=== PATIENT | female | born 1955 | race Caucasian/White ===

== ENCOUNTER 2016-07-27 08:46 | Day surgery (SDC) | payer BC, OTHER ==
[2016-07-25 12:12] VITALS: BMI 21.1
--- NOTE | 2016-07-27 09:47 | HP ---
Satellite [facility] - Chief Complaint Chief Complaint: right knee pain - Past Medical History Allergies/Adverse Reactions: Allergies Allergy/AdvReac Type Severity Reaction Status Date / Time No Known Drug Allergies Allergy Verified 07/27/16 09:02 - Current Medications Current Medications: Home Medications Medication Instructions Recorded Calcium Carbonate/Vitamin D3 1 each PO DAILY 10/28/14 [Calcium 600-Vit D3 200 Tablet] Hydrocodone/Acetaminophen [[place] 1 - 2 each PO Q6H #40 tablet MDD 8 07/27/16 5-325 Tablet] Montelukast Na [Singulair -] 10 mg PO HS 07/27/16 Satellite Physical Exam - Physical Examination Vital Signs: Vital Signs Period Temp Pulse Resp BP Sys/Shultz Pulse Ox Last 24 Hr 98 F 65 16 134/78 98 General Appearance: Well Nourished, Well Developed, Alert & Oriented x3 ENT: Clear Lung: Normal air movement Heart: Regular rate & rhythm Extremities: Other (right knee- + swelling, + ttp, decr rom, + mcmurrays, + apleys, nvi MRI + mmt) Neurological: Intact, Alert, Oriented Satellite Impression/Plan - Impression/Plan Impression: right knee internal derangement Operative Procedure: right knee arthroscopy Date to be Performed: 07/27/16
[2016-07-27] MEDS ORDERED: MIDAZOLAM HCL 2 MG/2 ML SINGLE DOSE VIAL ONE (10:14)
[2016-07-27] MEDS ORDERED: BUPIVACAINE HCL/PF 0.5% (5MG/ML) 10 ML VIAL ONE (10:18)
[2016-07-27] MEDS ORDERED: oxyCODONE HCL 5 MG TABLET PO PRN (10:57)
[2016-07-27] MEDS ORDERED: ONDANSETRON 4 MG/2 ML VIAL IVPUSH PRN (10:57)
[2016-07-27] MEDS ORDERED: LACTATED RINGERS SOLUTION 1,000 ML IV SCH (11:00)
[2016-07-27] MEDS ORDERED: ceFAZolin SODIUM 1 GM VIAL IVPB ONE (11:17)
--- NOTE | 2016-07-27 11:40 | OP ---
Operative Note - Note: [facility]ative [facility] Pre-Operative Diagnosis: right knee internal derangement Operation: right knee arthroscopy with PMM, debridement chondroplasty trochlea Post-Operative Diagnosis: Same as Pre-op Surgeon: Og Gotti Anesthesiologist/EVALUATION SPECIALIST: Hilda Murillo Anesthesia: General, Local Specimens Removed: shavings Estimated Blood Loss (mls): 5 Operative Report Dictated: Yes
[2016-07-27 12:20] VITALS: TEMP 97.5
[2016-07-27] MEDS ORDERED: oxyCODONE HCL 5 MG TABLET ONE (13:25)
[2016-07-27 17:21] VITALS: BP 130/72; PULSE 78
--- NOTE | 2016-07-28 12:06 | OP ---
DATE OF OPERATION: 07/27/2016 PREOPERATIVE DIAGNOSIS: Right knee medial meniscus tear. POSTOPERATIVE DIAGNOSIS: Right knee medial meniscus tear, plus patellofemoral osteoarthritis. PROCEDURE: Right knee arthroscopy, partial medial meniscectomy, and debridement chondroplasty. SURGEON: Laurie George MD TRANSPORTATION CONSULTANT: None. BUSINESS MANAGEMENT ASSOCIATE: Hilda Murillo CRNA ANESTHESIA: LMA. . DRAINS: None. COMPLICATIONS: None. FLUID REPLACEMENT: 500 mL. SPECIMENS: Arthroscopic shavings. BLOOD LOSS: None. BLOOD GIVEN: None. INDICATIONS: This patient is a 61-year-old female with a preoperative diagnosis of right knee pain and medial meniscus tear. After understanding the potential risks, complications, alternatives, and benefits of surgical versus nonsurgical treatment, the patient elected to undergo this procedure. DESCRIPTION OF PROCEDURE: The patient was brought to the operating room, peripheral IV placed, and IV sedation was given. One gram of IV Ancef was given. LMA anesthesia was induced. Ample padding was placed on the right leg including the Styrofoam ring, and right lower extremity was placed into the C-clamp leg-peña, elevated, exsanguinated with an Esmarch bandage. The tourniquet was inflated to 250 mmHg. A superomedial portal was established, a lateral portal was established, and under direct visualization, a medial portal was established. A diagnostic arthroscopy was performed. A probe was introduced into the medial compartment. The patient was seen to have a complex tear of the posterior horn and body of the medial meniscus. A combination of up-biting forceps and a curved shaver was utilized to do a partial medial meniscectomy. There was a large undersurface flap. I would estimate that I removed 30% of the body and posterior horn of the medial meniscus. Photographs were taken before and after. Next, I looked at the intercondylar notch. The ACL looked great. Probed, it had the appropriate tension. Next, I looked at the lateral compartment. It looked good. There was no arthritis, and the lateral meniscus looked good. Next, I looked at the patellofemoral joint. There was some excessive Hoffas fat pad. This was debrided. This revealed a large area of grade 4 osteoarthritis. It was approximately the size of a quarter with a dime on each side of it. The main portion at the patellofemoral joint looked quite good. There was a little bit of grooving at the trochlear notch. Photographs were taken, but the area of grade 4 exposed osteoarthritis was on the central portion of the medial femoral condyle, but it is less so in the weightbearing portion of the bone. There was a large unstable flap that was peeling off the bone. It was probed and then debrided with the shaver, and I mildly decorticated this area in the hopes of stimulating some sort of healing response. I do feel that at 61, she would be a good candidate for the patellofemoral MAKOplasty if this became an issue. The area was copiously irrigated and washed out. All instrumentation removed. Excess saline removed. The arthroscopy portal was closed with 3-0 nylon suture. The area was then washed and dried and covered with Xeroform, 4x4, Webril, and an Temo bandage. The tourniquet was taken down after a total tourniquet of about 20 minutes. There were no complications during the case. The patient tolerated the procedure well and was brought to the ambulatory recovery room in stable condition. LAURIE GEORGE M.D. [id number]
--- NOTE | 2016-07-29 09:44 | PATH ---
Surgical Pathology Report Patient Name: [facility]. Rec. #: [id number] /Age/Gender: 1955 (Age: 61) / F Account: [id number] Location: [facility] Taken: 07/27/2016 Received: 07/27/2016 Reported: 07/29/2016 Physicians: Og Gotti M.D. Specimen(s) Received SHAVINGS RIGHT KNEE Clinical History Right knee tear Final Diagnosis SOFT TISSUE, RIGHT KNEE, ARTHROSCOPIC SHAVINGS: SYNOVIUM AND FIBROCARTILAGE WITH MYXOHYALINE DEGENERATION. Electronically Signed Kael Purcell M.D. Gross Description Received in formalin, labeled "right knee shavings" is a 5.0 x 3.5 x 0.4 cm aggregate of whitney-yellow soft tissue fragments. A telephone sales representative portion is submitted in one cassette. /07/27/201607/27/2016
== END 2016-07-27 14:30 | disposition home or self-care (01) ==
LOC: JASU-SURG 08:46
PROVIDERS: ATTEND Orthopaedic Surgery
PROC: 0SBC4ZZ Excision of Right Knee Joint, Percutaneous Endoscopic Approach (ICD-10-PCS; 2016-07-27)
PROC: 0SBC4ZZ Excision of Right Knee Joint, Percutaneous Endoscopic Approach (ICD-10-PCS; principal; 2016-07-27 10:30)
DX: S83.231A Complex tear of medial meniscus, current injury, right knee, initial encounter (principal); X58.XXXA Exposure to other specified factors, initial encounter; Y93.9 Activity, unspecified; Y92.9 Unspecified place or not applicable; M17.11 Unilateral primary osteoarthritis, right knee
CPT/HCPCS: 29881; G0289; 88304-TC; 94760

== ENCOUNTER 2018-02-17 20:32 | Inpatient (IN) | payer BC, OTHER ==
[2018-02-17 20:54] VITALS: BMI 20.9
[2018-02-17] MEDS ORDERED: ACETAMINOPHEN 1000 MG/100 ML VIAL (NON FORMULARY) IVPB ONE (20:59)
--- NOTE | 2018-02-17 21:04 | PDOC ---
History of Present Illness - General Chief Complaint: Bone Injury Stated Complaint: BROKEN RT HIP Time Seen by Provider: 02/17/18 20:57 History Source: Patient, EMS Exam Limitations: No Limitations - History of Present Illness Initial Comments: 02/17/18 20:57 This is a 63 YOF with h/o COPD (on Spiriva) and ITP years ago (completely resolved on followup) who p/w right medial hip pain for the past ~2 days since falling while on vacation in [place]. She describes being on a platform at about 10:30 am [place] time yesterday when her right foot became caught on an irregular part of the platform, and she tipped over to her right, falling directly onto the right lateral hip. She did not hit her head or lose consciousness. She had immediate pain to the right medial hip at the inguinal crease (patient points). She was taken to a hospital in [place] where they did X-rays and detected a trochanteric fracture. The patient opted out of having surgery there and a medical jet plane flew here back here to a [place] airport, where she was picked up by EMS and brought here for Dr. Gotti's services because he is her orthopedist. The flight crew has been controlling her pain with Dilaudid and Fentanyl, last dose of any medication was Dilaudid at about 7:30 pm tonight. The patient denies f/c/n/v/d/c, chest pain, SOB, cough , palpitations, abdominal pain, significant cuts or bruises (tiny skin avulsion to left palm), numbness, tingling, focal weakness, or any other symptoms. Past History - Past Medical History Allergies/Adverse Reactions: Allergies Allergy/AdvReac Type Severity Reaction Status Date / Time No Known Drug Allergies Allergy Verified 07/27/16 09:02 Home Medications: Ambulatory Orders Calcium Carbonate/Vitamin D3 [Calcium 600-Vit D3 200 Tablet] 1 each PO DAILY Hydrocodone/Acetaminophen [[place] 5-325 Tablet] 1 - 2 each PO Q6H #40 tablet MDD 8 07/27/16 Montelukast Na [Singulair -] 10 mg PO HS 07/27/16 Anemia: No Asthma: No Cancer: No Cardiac Disorders: No CVA: No COPD: No CHF: No DVT: No Dementia: No Diabetes: No GI Disorders: No Disorders: No HTN: No Hypercholesterolemia: No Liver Disease: No Seizures: No Thyroid Disease: No - Surgical History Orthopedic Surgery: Yes (LEFT PATELLAR; LEFT KNEE REPAIR; RIGHT WRIST;) - Immunization History Immunization Up to Date: Yes - Suicide/Smoking/Psychosocial Hx Smoking History: Never smoked Have you smoked in the past 12 months: Yes If you are a former smoker, when did you quit?: 2 MONTHS Information on smoking cessation initiated: No 'Breaking Loose' booklet given: 07/25/16 Hx Alcohol Use: No Drug/Substance Use Hx: No Substance Use Type: Alcohol Hx Substance Use Treatment: No Review of Systems - Review of Systems Able to Perform ROS?: Yes Constitutional: No: Chills, Fever, Unexplained wgt Loss HEENTM: No: Nose Congestion, Throat Pain Respiratory: No: Cough, Shortness of Breath Cardiac (ROS): No: Chest Pain, Palpitations ABD/GI: No: Constipated, Diarrhea, Nausea, Vomiting : No: Burning, Dysuria Musculoskeletal: Yes: Other (right hip and groin pain). No: Back Pain, Neck Pain Integumentary: No: Bruising, Rash Neurological: No: Headache, Numbness, Tingling, Weakness, Dizziness Endocrine: No: Unexplained Weight Gain, Unexplained Weight Loss *Physical Exam - Vital Signs Last Vital Signs Temp Pulse Resp BP Pulse Ox 98.0 F 80 16 123/65 95 02/17/18 20:35 02/17/18 20:35 02/17/18 20:35 02/17/18 20:35 02/17/18 20:35 - Physical Exam General Appearance: Yes: Nourished, Appropriately Dressed, Other (awake, alert, oriented adult female, answering questions appropriately, no distress and appears comfortable at rest, increases to moderate distress and discomfort when being repositioned) HEENT: positive: EOMI, RISHI, Normal ENT Inspection, Normal Voice, Hearing Grossly Normal, Other (poor dentition, no scalp contusion, no cephalohematoma, no scalp laceration, no raccoon eyes, no foreman sign, no hemotympanum, no CSF rhinorrhea/otorrhea). negative: Scleral Icterus (R), Scleral Icterus (L), Nasal Congestion Neck: positive: Trachea midline, Supple. negative: Tender, Rigid Respiratory/Chest: positive: Lungs Clear, Normal Breath Sounds. negative: Chest Tender, Respiratory Distress, Crackles, Rhonchi, Stridor, Wheezing Cardiovascular: positive: Regular Rhythm, Regular Rate, S1, S2. negative: Edema , JVD, Murmur Vascular Pulses: Femoral (R): 2+, Femoral (L): 2+, Dorsalis-Pedis (R): 2+, Doralis-Pedis (L): 2+ Gastrointestinal/Abdominal: positive: Normal Bowel Sounds, Soft. negative: Tender, Organomegaly, Pulsatile Mass, Guarding Musculoskeletal: positive: Normal Inspection, Other (no midline vertebral tenderness C/T/L spine, no back hematoma). negative: Decreased Range of Motion , Vertebral Tenderness Extremity: positive: Normal Capillary Refill, Pelvis Stable, Other (right medial hip with mild-moderate ttp at the inguinal crease, mild ttp proximal medial thigh, no thigh hematoma, no ecchymosis, significant pain on ROM as noted when patient is being transferred to the hospital bed from EMS stretcher) . negative: Cyanosis, Pedal Edema, Calf Tenderness, Inflammation Integumentary: positive: Normal Color, Dry, Warm. negative: Erythema, Rash, Bruising Neurologic: positive: substation operator helper generation II-XII NML intact, Fully Oriented, Alert, Normal Mood/ Affect, Normal Response, Motor Strength 5/5. negative: Sensory Deficit, Confused, Disoriented ED Treatment Course - LABORATORY CBC & Chemistry Diagram: 02/18/18 08:10 02/18/18 08:10 Medical Decision Making - Medical Decision Making Adult female patient p/w GLF with subsequent right hip pain with known trochanteric fxr sustained from [facility]. Initial Vital Signs Temp Pulse Resp BP Pulse Ox 98.0 F 80 16 123/65 95 02/17/18 20:35 02/17/18 20:35 02/17/18 20:35 02/17/18 20:35 02/17/18 20:35 Exam: As noted in Physical Exam section. DDX IBNLT: hip/pelvis/femur fxr, hip dislocation, thigh hematoma, compartment syndrome, sprain/strain, contusion, etc. W/U ordered: XR hip/pelvis/femur/knee CBCD CMP Cardiac Panel Coags T&S UA UCx EKG CXR TX ordered: Ofirmev 02/17/18 21:[address] Gotti to inform him that the patient has arrived. She does not need to be NPO at this time, not likely to have intervention tomorrow. Dr. Gotti will see her in consult tomorrow in the hospital. Patient to be admitted under [facility]. Dr. Gotti also recommending SCDs and IV Heparin drip BETTINA as patient has been immobile, LE fracture. Laboratory Tests 02/17/18 02/17/18 02/17/18 09:00 22:40 22:40 WBC 8.2 RBC 3.31 L Hgb 11.7 Hct 33.5 MCV 101.3 H MCH 35.4 H MCHC 34.9 RDW 13.3 Plt Count 168 MPV 9.1 Absolute Neuts (auto) 5.6 Neutrophils % 68.5 Lymphocytes % 22.6 Monocytes % 7.4 Eosinophils % 1.0 Basophils % 0.5 Nucleated RBC % 0 PT with INR 10.30 INR 0.91 PTT (Actin FS) 23.6 L Sodium Potassium Chloride Carbon Dioxide Anion Gap BUN Creatinine Creat Clearance w eGFR Random Glucose Calcium Phosphorus Magnesium Total Bilirubin AST ALT Alkaline Phosphatase Total Protein Albumin Blood Type O POSITIVE Antibody Screen 02/17/18 02/17/18 02/17/18 22:40 22:40 23:20 WBC RBC Hgb Hct MCV MCH MCHC RDW Plt Count MPV Absolute Neuts (auto) Neutrophils % Lymphocytes % Monocytes % Eosinophils % Basophils % Nucleated RBC % PT with INR INR PTT (Actin FS) Sodium Cancelled 136 Potassium Cancelled 4.5 Chloride Cancelled 99 Carbon Dioxide Cancelled 31 Anion Gap Cancelled 6 L BUN Cancelled 10 Creatinine Cancelled 0.7 Creat Clearance w eGFR Cancelled > 60 Random Glucose Cancelled 123 H Calcium Cancelled 8.4 L Phosphorus Cancelled Magnesium Cancelled Total Bilirubin Cancelled 0.9 AST Cancelled 27 ALT Cancelled 26 Alkaline Phosphatase Cancelled 120 H Total Protein Cancelled 6.2 L Albumin Cancelled 3.2 L Blood Type O POSITIVE Antibody Screen Negative 02/18/18 01:00 Microblog sent to [facility] (admitting for Pts PCP). Blank Decision to Admit order placed. Patient's care endorsed to night team resident at the end of my shift pending passdown to inpatient team. *DC/Admit/Observation/Transfer Diagnosis at time of Disposition: Trochanteric fracture Qualifiers: Encounter type: initial encounter Fracture type: closed Laterality: right Qualified Code(s): S72.101A - Unspecified trochanteric fracture of right femur, initial encounter for closed fracture Fall Qualifiers: Encounter type: initial encounter Qualified Code(s): W19.XXXA - Unspecified fall, initial encounter COPD (chronic obstructive pulmonary disease) Qualifiers: COPD type: unspecified COPD Qualified Code(s): J44.9 - Chronic obstructive pulmonary disease, unspecified - Discharge Dispostion Condition at time of disposition: Guarded Decision to Admit order: Yes - Referrals - Patient Instructions - Post Discharge Activity
--- NOTE | 2018-02-17 21:05 | PDOC ---
Attending Attestation - Resident Resident Name: Yoly Murray - HPI HPI: 02/17/18 22:08 The patient is a 63-year-old female with past medical history of COPD and ITP presents to the emergency department s/p a mechanical fall. The patient reports she was in [place] when she suffered a fall. The patient reports a day and half around 10:30 am [place] time (5:30 am ET), patients foot got caught, leading the patient to trip, landing on her R. lateral hip, No LOC. The patient reports she was seen at a local hospital, where an X-ray of the leg was done. The patient indicates the X-ray detected a trochanteric fracture. The patient refused to have surgery there, was transported back. The patient reports pain to the R. hip, aggravated with movement, with relief noted at rest. Denies shortness of breath or body pain. Allergies: NKDA Surgical history: right knee arthroscopy with PMM, debridement chondroplasty trochlea (07/27/16) by Dr. Gotti. PCP: Hamilton Cuellar - Physicial Exam PE: 02/17/18 22:38 GENERAL: Awake, alert, and fully oriented, in no acute distress LUNGS: Breath sounds equal, clear to auscultation bilaterally. No wheezes, and no crackles HEART: Regular rate and rhythm, normal S1 and S2, no murmurs, rubs or gallops ABDOMEN: Soft, nontender, nondistended. EXTREMITIES: (+) R. leg shortened and internally rotated. Neurovascularly intact. dorsalis pedis pulse intact No deformities of the ankle or knee. - Medical Decision Making 02/17/18 22:09 Documentation prepared by Ameena Cifuentes, acting as medical scientist for Lia Camargo MD. <Ameena Cifuentes - Last Filed: 02/17/18 22:38> - Medical Decision Making 02/17/18 22:50 Pt presents to the ED complaining of R hip intrertrochanteric fracture that was diagnosed in [facility] yesterday. Sent in for admission by Dr. Gotti. Will start on heparin to prevent DVT, check labs and xray and admit to medicine. <Lia Camargo - Last Filed: 02/17/18 22:53>
[2018-02-17] MEDS ORDERED: HEPARIN NA (PORCINE) 5,000 UNITS/ML 1ML VIAL IVPUSH PRN ×2 (21:10)
[2018-02-17] MEDS ORDERED: HEPARIN SOD,PORK IN 0.45% NACL 25,000 UNIT/500 ML INFUS.BAG IVPB SCH (21:15)
[2018-02-17 23:01] LABS: BASO % 0.5 % (0-2.0); HEMATOCRIT 33.5 % (32.4-45.2); HEMOGLOBIN 11.7 GM/dL (10.7-15.3); LYMPH % 22.6 % (8-40); MCH 35.4 pg (25.7-33.7); MCHC 34.9 g/dl (32.0-36.0); MEAN CELL VOLUME 101.3 fl (80-96); MEAN PLT VOLUME 9.1 fl (7.5-11.1); MONO % 7.4 % (3.8-10.2); NEUT % 68.5 % (42.8-82.8); PLATELET COUNT 168 K/MM3 (134-434); RBC 3.31 M/mm3 (3.60-5.2); RDW 13.3 % (11.6-15.6); WHITE BLOOD COUNT 8.2 K/mm3 (4.0-10.0)
[2018-02-17 23:08] LABS: INR 0.91 (0.83-1.09); PROTHROMBIN TIME (PATIENT) 10.3 SEC (9.7-13.0)
[2018-02-17] MEDS ORDERED: ACETAMINOPHEN INJECTION 100 ML IVPB ONE (23:09)
[2018-02-17] MEDS ORDERED: HEPARIN INFUSION - 25,000 UNITS/500 ML INFUS.BAG IVPB ONE (23:09)
[2018-02-17 23:11] LABS: ACTIVATED PTT 23.6 SECONDS (25.2-36.5)
[2018-02-17] MEDS ORDERED: morphine CARPU-JECT 4 MG/1 ML DISP.SYRIN IVPUSH ONE (23:24)
[2018-02-17] MEDS ORDERED: MORPHINE SULFATE 2 MG/ML VIAL ONE (23:29)
[2018-02-17] MEDS ORDERED: morphine SULFATE 4 MG/ML VIAL ONE (23:29)
[2018-02-17 23:53] LABS: ALBUMIN 3.2 g/dl (3.4-5.0); ALK PHOS 120 U/L (45-117); ANION GAP 6 MMOL/L (8-16); BILIRUBIN,TOTAL 0.9 mg/dL (0.2-1.0); BLOOD UREA NITROGEN 10 mg/dL (7-18); CALCIUM 8.4 mg/dL (8.5-10.1); CHLORIDE 99 mmol/L (98-107); CO2 31 mmol/L (21-32); CREATININE 0.7 mg/dL (0.55-1.02); GLUCOSE,RANDOM 123 mg/dL (74-106); POTASSIUM 4.5 mmol/L (3.5-5.1); SGOT/AST 27 U/L (15-37); SGPT/ALT 26 U/L (12-78); SODIUM 136 mmol/L (136-145); TOT PROT 6.2 g/dl (6.4-8.2)
[2018-02-18] MEDS ORDERED: LORazepam 2 MG/ML SDV VIAL ONE (00:29)
--- NOTE | 2018-02-18 02:50 | HP ---
CHIEF COMPLAINT: R Hip pain PCP: Dr. Hamilton Cohen HISTORY OF PRESENT ILLNESS: Limited History due to patient sedated. Was given Ativan 3mg. Patient is a 63 yo F with a PMHx of COPD, presented to the ED for R Hip pain s/ p mechanical fall a day and a half ago while in [place]. She said her leg got caught on something and fell, landing on her Lateral R hip. Patient did not hit her head or lose consciousness. She said she was found to have a hip fracture ( trochanteric fracture) in a hospital and was told she needed surgery. She chose to leave the hospital and come [place] the [place] so she can get treated by Dr. Gotti. The patient denies fever, nausea, vomiting, cough, dizziness, chest pain, SOB, cough, palpitations, abdominal pain, numbness, tingling, focal weakness, or any other symptoms. ER course was notable for: (1) Knee, Hip X rays (2) Dr. Gotti called by ED, wanted patient admitted. Recent Travel: [facility] PAST SURGICAL HISTORY: right knee arthroscopy with PMM, debridement chondroplasty trochlea (07/27/16) by Dr. Gotti Social History: Smoking: n/a Alcohol: n/a Drugs: n/a Family History: Allergies No Known Drug Allergies Allergy (Verified 07/27/16 09:02) HOME MEDICATIONS: Home Medications Medication Instructions Recorded Calcium Carbonate/Vitamin D3 1 each PO DAILY 10/28/14 [Calcium 600-Vit D3 200 Tablet] Hydrocodone/Acetaminophen [[place] 1 - 2 each PO Q6H #40 tablet MDD 8 07/27/16 5-325 Tablet] Montelukast Na [Singulair -] 10 mg PO HS 07/27/16 REVIEW OF SYSTEMS unable to obtain PHYSICAL EXAMINATION Vital Signs - 24 hr 02/17/18 02/17/18 02/18/18 20:35 21:00 01:21 Temperature 98.0 F 98.0 F Pulse Rate 80 89 Pulse Rate [ 90 Right Radial] Respiratory 16 16 16 Rate Blood Pressure 123/65 100/70 Blood Pressure 105/72 [Right Arm] O2 Sat by Pulse 95 96 96 Oximetry (%) GENERAL: sedated, not cooperative HEAD: Normal with no signs of trauma. EYES: Pupils equal, round and reactive to light, conjunctiva clear. EARS, NOSE, THROAT: oropharynx clear without exudates. Moist mucous membranes. NECK: Normal range of motion, supple without lymphadenopathy, JVD, or masses. LUNGS: Breath sounds equal, clear to auscultation bilaterally. No wheezes, and no crackles. HEART: Regular rate and rhythm, normal S1 and S2 without murmur, rub or gallop. ABDOMEN: Soft, nontender, not distended, normoactive bowel sounds, no guarding, no rebound, no masses. MUSCULOSKELETAL: restricted range of motion on R leg, patient not cooperative due to sedation LOWER EXTREMITIES: R. leg shortened and internally rotated, 2 + pulses, reflex normal NEUROLOGICAL: unable to obtain Laboratory Results - last 24 hr 02/17/18 02/17/18 02/17/18 22:40 22:40 22:40 WBC 8.2 RBC 3.31 L Hgb 11.7 Hct 33.5 MCV 101.3 H MCH 35.4 H MCHC 34.9 RDW 13.3 Plt Count 168 MPV 9.1 Absolute Neuts (auto) 5.6 Neutrophils % 68.5 Lymphocytes % 22.6 Monocytes % 7.4 Eosinophils % 1.0 Basophils % 0.5 Nucleated RBC % 0 PT with INR 10.30 INR 0.91 PTT (Actin FS) 23.6 L Sodium Cancelled Potassium Cancelled Chloride Cancelled Carbon Dioxide Cancelled Anion Gap Cancelled BUN Cancelled Creatinine Cancelled Creat Clearance w eGFR Cancelled Random Glucose Cancelled Calcium Cancelled Phosphorus Cancelled Magnesium Cancelled Total Bilirubin Cancelled AST Cancelled ALT Cancelled Alkaline Phosphatase Cancelled Total Protein Cancelled Albumin Cancelled Blood Type Antibody Screen 02/17/18 02/17/18 22:40 23:20 WBC RBC Hgb Hct MCV MCH MCHC RDW Plt Count MPV Absolute Neuts (auto) Neutrophils % Lymphocytes % Monocytes % Eosinophils % Basophils % Nucleated RBC % PT with INR INR PTT (Actin FS) Sodium 136 Potassium 4.5 Chloride 99 Carbon Dioxide 31 Anion Gap 6 L BUN 10 Creatinine 0.7 Creat Clearance w eGFR > 60 Random Glucose 123 H Calcium 8.4 L Phosphorus Magnesium Total Bilirubin 0.9 AST 27 ALT 26 Alkaline Phosphatase 120 H Total Protein 6.2 L Albumin 3.2 L Blood Type O POSITIVE Antibody Screen Negative ASSESSMENT/PLAN: 63 yo F with a PMHx of COPD, presented to the ED for R Hip pain s/p mechanical fall #L Hip Pain s/p Mechanical Fall -Admitted for trochanteric fracture -Ortho consulted: Dr. Gotti -Pain control with morphine -Xrays -NPO #FEN -No iv fluids -replete as needed -NPO after midnight med rec needed Dvt: hep sq Visit type - Emergency Visit Emergency Visit: Yes ED Registration Date: 02/18/18 Care time: The patient presented to the Emergency Department on the above date and was hospitalized for further evaluation of their emergent condition. - New Patient This patient is new to me today: Yes Date on this admission: 02/18/18 - Critical Care Critical Care patient: No Hospitalist Screening - Colonoscopy Questionnaire Colonoscopy Questionnaire: Colonoscopy Questionnaire - Patient: 50 - 75 years old and never had a screening colonoscopy: Unknown History of colon or rectal polyps, or CA: Unknown History of IBD, Crohn's disease or UC: Unknown History of abdominal radiation therapy as a child: Unknown - Relative: 1 with colon or rectal CA, or polyps at age 60 or younger: Unknown Colon or rectal CA diagnosed at age 45 or younger: Unknown Multiple relatives with colon or rectal CA: Unknown - Outcome: Screening Result: Negative Screen
[2018-02-18] MEDS ORDERED: morphine SULFATE 4 MG/ML VIAL IVPUSH PRN (02:59)
--- NOTE | 2018-02-18 03:24 | PN ---
Teaching Attending Note Name of Resident: Devan Santiago ATTENDING PHYSICIAN STATEMENT I saw and evaluated the patient. I reviewed the resident's note and discussed the case with the resident. I agree with the resident's findings and plan as documented. SUBJECTIVE: OBJECTIVE: ASSESSMENT AND PLAN: 63 yo F with a PMHx of COPD, presented to the ED for R Hip pain s/p mechanical fall patient received 3mg IVP ativan and was not giving us the proper history #L Hip Pain s/p Mechanical Fall -Admitted for trochanteric fracture -Ortho consulted: Dr. Gotti -Pain control with morphine -NPO
[2018-02-18] MEDS ORDERED: morphine SULFATE 4 MG/ML VIAL ONE (05:44)
[2018-02-18] MEDS ORDERED: HEPARIN NA (PORCINE) 5,000 UNITS/ML 1ML VIAL SQ SCH (06:00)
[2018-02-18] MEDS ORDERED: HEPARIN NA (PORCINE) 5,000 UNITS/ML 1ML VIAL ONE (06:07)
[2018-02-18 08:17] LABS: HEMATOCRIT 30.8 % (32.4-45.2); HEMOGLOBIN 10.4 GM/dL (10.7-15.3); MCH 34.2 pg (25.7-33.7); MCHC 33.7 g/dl (32.0-36.0); MEAN CELL VOLUME 101.4 fl (80-96); MEAN PLT VOLUME 8.8 fl (7.5-11.1); PLATELET COUNT 150 K/MM3 (134-434); RBC 3.04 M/mm3 (3.60-5.2); RDW 13.5 % (11.6-15.6); WHITE BLOOD COUNT 6.8 K/mm3 (4.0-10.0)
[2018-02-18 09:02] LABS: ALBUMIN 2.8 g/dl (3.4-5.0); ALK PHOS 104 U/L (45-117); ANION GAP 10 MMOL/L (8-16); BILIRUBIN,TOTAL 0.9 mg/dL (0.2-1.0); BLOOD UREA NITROGEN 7 mg/dL (7-18); CALCIUM 8.2 mg/dL (8.5-10.1); CHLORIDE 102 mmol/L (98-107); CO2 26 mmol/L (21-32); CREATININE 0.4 mg/dL (0.55-1.02); GLUCOSE,RANDOM 105 mg/dL (74-106); POTASSIUM 3.8 mmol/L (3.5-5.1); SGOT/AST 25 U/L (15-37); SGPT/ALT 22 U/L (12-78); SODIUM 138 mmol/L (136-145); TOT PROT 5.4 g/dl (6.4-8.2)
--- NOTE | 2018-02-18 11:59 | PN ---
Progress Note, Physician History of Present Illness: 63 YOF with h/o COPD (on Spiriva) and ITP years ago (completely resolved on followup) who p/w right medial hip pain for the past ~2 days since falling while on vacation in [place]. She describes being on a platform at about 10:30 am [place] time yesterday when her right foot became caught on an irregular part of the platform, and she tipped over to her right, falling directly onto the right lateral hip. She did not hit her head or lose consciousness. She had immediate pain to the right medial hip at the inguinal crease This am pt c/o hip pain no cp or sob - Current Medication List Current Medications: Active Medications Morphine Sulfate (Morphine Sulfate) 4 mg IVPUSH Q6H PRN PRN Reason: PAIN LEVEL 6-10 Last Admin: 02/18/18 05:50 Dose: 4 mg - Objective Vital Signs: Vital Signs Temperature 97.7 F 02/18/18 08:25 Pulse Rate 83 02/18/18 08:25 Respiratory Rate 19 02/18/18 08:25 Blood Pressure 94/82 02/18/18 08:25 O2 Sat by Pulse Oximetry (%) 99 02/18/18 08:25 Cardiovascular: Yes: Regular Rate and Rhythm Respiratory: Yes: Regular, CTA Bilaterally Gastrointestinal: Yes: Normal Bowel Sounds, Soft Musculoskeletal: Yes: Joint Swelling, Muscle Weakness Extremities: Yes: External Rotation Neurological: Yes: Alert, Oriented Labs: CBC, BMP 02/18/18 08:10 02/18/18 08:10 INR, PTT INR 0.91 (0.83-1.09) 02/17/18 22:40 Problem List - Problems (1) Trochanteric fracture Assessment/Plan: -Ortho consulted: Dr. Gotti -Pain control with morphine -NPO -iv fluids -DVT prophylaxis -EKG nsr,cxr nad -pt without contraindication for planned surgery Code(s): S72.109A - UNSP TROCHANTERIC FRACTURE OF UNSP FEMUR, INIT FOR CLOS FX Qualifiers: Encounter type: initial encounter Fracture type: closed Laterality: right Qualified Code(s): S72.101A - Unspecified trochanteric fracture of right femur, initial encounter for closed fracture (2) COPD (chronic obstructive pulmonary disease) Assessment/Plan: -nebs -pulm Code(s): J44.9 - CHRONIC OBSTRUCTIVE PULMONARY DISEASE, UNSPECIFIED Qualifiers: COPD type: unspecified COPD Qualified Code(s): J44.9 - Chronic obstructive pulmonary disease, unspecified (3) Fall Assessment/Plan: -as above Code(s): W19.XXXA - UNSPECIFIED FALL, INITIAL ENCOUNTER Qualifiers: Encounter type: initial encounter Qualified Code(s): W19.XXXA - Unspecified fall, initial encounter
[2018-02-18] MEDS ORDERED: D5-1/2NS+20 MEQ KCL - 20 MEQ/1,000 ML INFUS.BAG IV SCH ×2 (12:15→14:34)
[2018-02-18] MEDS ORDERED: ONDANSETRON 4 MG/2 ML VIAL IVPUSH PRN ×2 (13:05→14:34)
[2018-02-18] MEDS ORDERED: PROMETHAZINE HCL 25 MG/1 ML VIAL IVPUSH PRN (13:05)
[2018-02-18] MEDS ORDERED: MIDAZOLAM HCL 2 MG/2 ML SINGLE DOSE VIAL ONE (13:13)
[2018-02-18] MEDS ORDERED: LACTATED RINGERS SOLUTION 1,000 ML IV SCH ×2 (13:15→14:34)
[2018-02-18] MEDS ORDERED: LIDOCAINE HCL/PF 2% SDV 5ML VIAL ONE (13:19)
[2018-02-18] MEDS ORDERED: ceFAZolin SODIUM 1 GM VIAL ONE (13:23)
[2018-02-18] MEDS ORDERED: SODIUM CHLORIDE 0.9% P/F 10 ML VIAL IJ ONE (13:23)
[2018-02-18] MEDS ORDERED: ceFAZolin SODIUM 1 GM VIAL IVPB ONE (13:24)
[2018-02-18] MEDS ORDERED: DEXAMETHASONE SOD PHOSPHATE 4 MG/1 ML VIAL ONE (13:25)
[2018-02-18] MEDS ORDERED: KETOROLAC TROMETHAMINE 30 MG/1 ML VIAL ONE (13:35)
--- NOTE | 2018-02-18 14:13 | OP ---
Operative Note - Note: Operative Date: 02/18/18 Pre-Operative Diagnosis: right hip inter trochanteric femur fracture Operation: right Gamma Nail Implants: Lynn Gamma 3 nail, 125 degree, 95mm lag screw, 37.5 distal locking screw Surgeon: Og Gotti Anesthesiologist/JAVA PORTAL DEVELOPER: Anirudh Rao Anesthesia: General Estimated Blood Loss (mls): 75 Drains, Volume Out (mls): 0 Blood Volume Replaced (mls): 0 Fluid Volume Replaced (mls): 300 Operative Report Dictated: Yes
--- NOTE | 2018-02-18 15:52 | OP ---
DATE OF OPERATION: 02/18/2018 PREOPERATIVE DIAGNOSIS: Right femur intertrochanteric hip fracture. POSTOPERATIVE DIAGNOSIS: Right femur intertrochanteric hip fracture. PROCEDURE: Right Gamma nail/intramedullary nail, right femur. SURGEON: Og Gotti MD WEIGHTER: None. Hong Rao MD; general anesthesia. DRAINS: None. COMPLICATIONS: None. BLOOD LOSS: 75 mL. BLOOD GIVEN: None. FLUID REPLACEMENT: 300 mL Plasmalyte. IMPLANTS: Lynn titanium G3 Gamma nail, 95-mm lag screw, 37.5 distal interlocking screw. This patient is a 63-year-old female with a preoperative diagnosis of a right femur intertrochanteric hip fracture. After understanding the potential risks, complications, alternatives, benefits of surgical versus nonsurgical treatment, the patient elected to undergo this procedure. The patient was brought to the operating room, peripheral IV placed. She received 1 g of IV antibiotics and general anesthesia was induced. The patient had ample Webril placed around the peroneal post in both ankles. The patient was placed onto the fracture table with a slight longitudinal traction and internal rotation. X-rays were taken documenting excellent reduction of the fracture in the AP and lateral planes. Next, an incision was made over the proximal aspect of the greater trochanter. Subcutaneous hemostasis was achieved with a Bovie cautery, dissection done through the lateral fascia to the top of the greater trochanter. A Morales elevator was used to take off the soft tissue from the starting point. Under direct visualization a partially threaded guide-wire was placed through the standard starting position, into the proximal femur, passed the fracture fragment into the medullary canal. It was documented to be in excellent position in AP, lateral and multiple oblique planes. Next, we used the proximal 17 mm cannulated reamer and put in a standard titanium [place] Gamma 3, 125-degree, 180 mm trochanteric nail. This was put in cannulated fashion to appropriate depth and using the external guide in a standard fashion, first using external jig, using a threaded guide-wire, replaced the lag screw, guide pin to the lateral aspect of the femur. The prosthesis and up to the femoral neck and head, looked to be in excellent position in a center central position, perhaps slightly posterior and slightly inferior in both AP and lateral planes. We measured it at a 95-mm screw. The cannulated drill was used to drill it to this leg and then we put in 95-mm titanium lag screw. We achieved excellent compression and overall the position of the hardware in the fracture fragments looked excellent. We locked it in place with a proximal set screw, we altered the external jig to the static position and using the standard technique put in a distal interlocking screw under direct visualization of 37.5 mm in length. This locked the nail distally. We removed the external jig. We repeated x-rays in AP, lateral and multiple oblique planes and overall I was quite happy with the position of the fracture reduction, the length of the screw, the position of the hardware. Final x-rays were taken. The area was copiously irrigated and washed out. The deep fascial layer was closed with 0 Vicryl sutures. The deep dermal layer was closed with 2-0 Vicryl. Final skin approximation was done with claribel. The area was then washed and dried, covered with Xeroform gauze, 4 x 4 gauze, ABD and tape. Patient was taken down off the fracture table in stable condition. There were no complications during the case. Total operative time was about 25 minutes. Patric [id number]
[2018-02-18] MEDS: morphine SULFATE 4 MG/ML VIAL IVPUSH PRN ×2 (17:01→21:45)
[2018-02-18] MEDS ORDERED: MELATONIN 1 MG TABLET PO ONE (21:39)
--- NOTE | 2018-02-19 07:51 | PN ---
Progress Note (short form) - Note Progress Note: Anesthesia Post-Op Note Pt s/p right hip gamma nailing on 02/18/18 under [place]. Pt reports she is feeling well. Pain exacerbated by movement but tolerable with pain meds. Denies nausea/vomiting. Vital Signs Temperature 98.2 F 02/19/18 07:00 Pulse Rate 73 02/19/18 07:00 Respiratory Rate 18 02/19/18 07:00 Blood Pressure 94/55 02/19/18 07:00 O2 Sat by Pulse Oximetry (%) 100 02/18/18 20:53 Continue management per primary team. Bowel regimen with pain medication. Encourage IS. OOB with assistance when surgically ready.
--- NOTE | 2018-02-19 10:37 | EKG ---
Test Reason : Blood Pressure : / mmHG Vent. Rate : 084 BPM Atrial Rate : 084 BPM P-R Int : 150 ms QRS Dur : 074 ms QT Int : 358 ms P-R-T Axes : 045 016 031 degrees QTc Int : 423 ms NORMAL SINUS RHYTHM NORMAL ECG NO PREVIOUS ECGS AVAILABLE Confirmed by CHIKIS CHOW MD ([id number]) on 02/19/2018 10:37:18 AM Referred By: Confirmed By:CHIKIS CHOW MD
--- NOTE | 2018-02-19 10:49 | CON.PULM ---
Consult Consult Specialty:: PULMONARY Referred by:: Dr. Bell Reason for Consultation:: COPD - History of Present Illness Chief Complaint: s/p fall History of Present Illness: 63yo female with h/o COPD who was admitted s/p mechanical fall while in [place] , found to have a right hip fracture now post op day 1 from gamma nail. Was diagnosed a few months ago with COPD. She denies any shortness of breath, chronic cough or wheezing. She has unlimited exercise tolerance. She started smoking at age 13, smoked less than 1 PPD until a few months ago. 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 Has never had a screening CT chest. - History Source History Provided By: Patient, Medical Record Limitations to Obtaining History: No Limitations - Past Medical History Pulmonary: Yes: COPD - Alcohol/Substance Use Hx Alcohol Use: Yes - Smoking History Smoking history: Former smoker Have you smoked in the past 12 months: Yes Aproximately how many cigarettes per day: 10 If you are a former smoker, when did you quit?: 2 MONTHS Home Medications - Allergies Allergies/Adverse Reactions: Allergies Allergy/AdvReac Type Severity Reaction Status Date / Time No Known Drug Allergies Allergy Verified 07/27/16 09:02 - Home Medications Home Medications: Ambulatory Orders Calcium Carbonate/Vitamin D3 [Calcium 600-Vit D3 200 Tablet] 1 each PO DAILY Hydrocodone/Acetaminophen [[place] 5-325 Tablet] 1 - 2 each PO Q6H #40 tablet MDD 8 07/27/16 Montelukast Na [Singulair -] 10 mg PO HS 07/27/16 Review of Systems - Review of Systems Constitutional: denies: Chills, Fever Eyes: denies: Recent Change in Vision HENT: denies: Nasal Congestion, Throat Pain Neck: denies: Stiffness, Tenderness Cardiovascular: denies: Chest Pain, Shortness of Breath Respiratory: denies: Cough, Exercise Intolerance, Hemoptysis, SOB on Exertion, Wheezing Gastrointestinal: denies: Abdominal Pain, Nausea, Vomiting Genitourinary: denies: Dysuria, Hematuria Musculoskeletal: reports: Joint Pain Neurological: denies: Dizziness, Headache Endocrine: denies: Unexplained Weight Loss Physical Exam Vital Sings: Vital Signs Temperature 98.2 F 02/19/18 07:00 Pulse Rate 73 02/19/18 07:00 Respiratory Rate 18 02/19/18 07:00 Blood Pressure 94/55 02/19/18 07:00 O2 Sat by Pulse Oximetry (%) 100 02/18/18 20:53 Constitutional: Yes: Calm Eyes: Yes: Conjunctiva Clear, EOM Intact HENT: Yes: Atraumatic, Normocephalic Neck: Yes: Supple, Trachea Midline Cardiovascular: Yes: Regular Rate and Rhythm Respiratory: Yes: Diminished (decreased breath sounds at the bases) ...Clubbing: No Gastrointestinal: Yes: Normal Bowel Sounds, Soft. No: Tenderness Edema: No Neurological: Yes: Alert, Oriented Labs: CBC, BMP 02/18/18 08:10 02/18/18 08:10 Imaging - Results Chest X-ray: Report Reviewed, Image Reviewed (no infiiltrates) Problem List - Problems (1) COPD (chronic obstructive pulmonary disease) Code(s): J44.9 - CHRONIC OBSTRUCTIVE PULMONARY DISEASE, UNSPECIFIED Qualifiers: COPD type: unspecified COPD Qualified Code(s): J44.9 - Chronic obstructive pulmonary disease, unspecified (2) Fall Code(s): W19.XXXA - UNSPECIFIED FALL, INITIAL ENCOUNTER Qualifiers: Encounter type: initial encounter Qualified Code(s): W19.XXXA - Unspecified fall, initial encounter (3) Trochanteric fracture Code(s): S72.109A - UNSP TROCHANTERIC FRACTURE OF UNSP FEMUR, INIT FOR CLOS FX Qualifiers: Encounter type: initial encounter Fracture type: closed Laterality: right Qualified Code(s): S72.101A - Unspecified trochanteric fracture of right femur, initial encounter for closed fracture Assessment/Plan s/p Fall Right Hip Fracture s/p gamma nail COPD - will order CXR PA/lateral for possible bony abnormality on CXR - screening low dose CT chest noncontrast as outpt - outpt PFTs - incentive spirometry - DVT prophylaxis Thank you for this consult Jeremy Boyce MD
[2018-02-19] MEDS: ASPIRIN COATED 81 MG TABLET.EC PO SCH (10:57)
--- NOTE | 2018-02-19 11:13 | PN ---
Progress Note (short form) - Note Progress Note: Ortho Pt seen and examined s/p right IM gamma nail pod #1 Selected Entries 02/19/18 07:00 Temperature 98.2 F Pulse Rate 73 Respiratory 18 Rate Blood Pressure 94/55 Laboratory Tests 02/18/18 08:10 WBC 6.8 Hgb 10.4 L Hct 30.8 L Plt Count 150 dressing c/d/i, calf soft, nt nvi a/p PT PWB dvt ppx pain control d/c planning
[2018-02-19] MEDS: oxyCODONE HCL 5 MG TABLET PO PRN (11:51)
[2018-02-19] MEDS: ACETAMINOPHEN 325 MG TABLET (FP) PO PRN (11:52)
[2018-02-19] MEDS: morphine SULFATE 4 MG/ML VIAL IVPUSH PRN ×2 (13:32→19:34)
--- NOTE | 2018-02-19 19:29 | PN ---
Progress Note, Physician Chief Complaint: S/P RIGHT HIP GAMMA NAIL SURGERY FOR FRACTURE TOLERATED WELL IN MODERATE DISTRESS - Current Medication List Current Medications: Active Medications Acetaminophen (Tylenol -) 325 mg PO Q6H PRN PRN Reason: PAIN LEVEL 7-10 Last Admin: 02/19/18 11:52 Dose: 325 mg Aspirin (Ecotrin -) 81 mg PO DAILY [facility] Last Admin: 02/19/18 10:57 Dose: 81 mg Ferrous Sulfate (Feosol -) 325 mg PO DAILY [facility] Morphine Sulfate (Morphine Sulfate) 4 mg IVPUSH Q6H PRN PRN Reason: PAIN LEVEL 6-10 Last Admin: 02/19/18 13:32 Dose: 4 mg Ondansetron HCl (Zofran Injection) 4 mg IVPUSH Q6H PRN PRN Reason: NAUSEA AND/OR VOMITING Oxycodone HCl (Roxicodone -) 5 mg PO Q6H PRN PRN Reason: PAIN LEVEL 7-10 Last Admin: 02/19/18 11:51 Dose: 5 mg Senna (Senna -) 1 tab PO [facility] - Objective Vital Signs: Vital Signs Temperature 98.4 F 02/19/18 17:28 Pulse Rate 100 H 02/19/18 17:28 Respiratory Rate 18 02/19/18 17:28 Blood Pressure 115/59 02/19/18 17:28 O2 Sat by Pulse Oximetry (%) 96 02/19/18 09:00 Constitutional: Yes: Moderate Distress Eyes: Yes: WNL HENT: Yes: WNL Neck: Yes: WNL Cardiovascular: Yes: WNL Respiratory: Yes: WNL Gastrointestinal: Yes: WNL Genitourinary: Yes: WNL Musculoskeletal: Yes: Joint Swelling Extremities: Yes: Other Edema: No Peripheral Pulses WNL: Yes Integumentary: Yes: WNL Wound/Incision: Yes: Clean/Dry Neurological: Yes: Pre-Existing Deficit ...Motor Strength: RLE Psychiatric: Yes: WNL Labs: CBC, BMP 02/18/18 08:10 02/18/18 08:10 INR, PTT INR 0.91 (0.83-1.09) 02/17/18 22:40 Problem List - Problems (1) COPD (chronic obstructive pulmonary disease) Code(s): J44.9 - CHRONIC OBSTRUCTIVE PULMONARY DISEASE, UNSPECIFIED Qualifiers: COPD type: unspecified COPD Qualified Code(s): J44.9 - Chronic obstructive pulmonary disease, unspecified (2) Fall Code(s): W19.XXXA - UNSPECIFIED FALL, INITIAL ENCOUNTER Qualifiers: Encounter type: initial encounter Qualified Code(s): W19.XXXA - Unspecified fall, initial encounter (3) Trochanteric fracture Code(s): S72.109A - UNSP TROCHANTERIC FRACTURE OF UNSP FEMUR, INIT FOR CLOS FX Qualifiers: Encounter type: initial encounter Fracture type: closed Laterality: right Qualified Code(s): S72.101A - Unspecified trochanteric fracture of right femur, initial encounter for closed fracture Assessment/Plan DVT PROPHYLAXIS OOB TO CHAIR PAIN CONTROL INCENTIVE SPIROMETRY PULM BRET APPRECIATED SNF TOMORROW
[2018-02-19] MEDS: FERROUS SO4 325 MG TABLET (FP) PO SCH (19:34)
[2018-02-19] MEDS: SENNOSIDES 8.6MG TABLET (FP) PO SCH (21:12)
[2018-02-20] MEDS: FERROUS SO4 325 MG TABLET (FP) PO SCH (09:00)
[2018-02-20] MEDS: HEPARIN NA (PORCINE) 5,000 UNITS/ML 1ML VIAL SQ SCH ×3 (09:00→22:25)
[2018-02-20] MEDS: ASPIRIN COATED 81 MG TABLET.EC PO SCH (09:01)
--- NOTE | 2018-02-20 10:42 | PN ---
Progress Note (short form) - Note Progress Note: PULMONARY Denies shortness of breath or chest pain. Vital Signs Period Temp Pulse Resp BP Sys/Shultz Pulse Ox Last 24 Hr 98.4 F-98.8 F 81-100 16-18 88-115/50-71 96 Gen: NAD at rest Heart: RRR Lung: decreased breath sounds at the bases Abd: soft, nontender Ext: no edema CBC, BMP 02/18/18 08:10 02/18/18 08:10 Active Medications Acetaminophen (Tylenol -) 325 mg PO Q6H PRN PRN Reason: PAIN LEVEL 7-10 Last Admin: 02/19/18 11:52 Dose: 325 mg Aspirin (Ecotrin -) 81 mg PO DAILY [facility] Last Admin: 02/20/18 09:01 Dose: 81 mg Ferrous Sulfate (Feosol -) 325 mg PO DAILY@0800 [facility] Last Admin: 02/20/18 09:00 Dose: 325 mg Heparin Sodium (Porcine) (Heparin -) 5,000 unit SQ TID [facility] Last Admin: 02/20/18 09:00 Dose: 5,000 unit Morphine Sulfate (Morphine Sulfate) 4 mg IVPUSH Q6H PRN PRN Reason: PAIN LEVEL 6-10 Last Admin: 02/19/18 19:34 Dose: 4 mg Ondansetron HCl (Zofran Injection) 4 mg IVPUSH Q6H PRN PRN Reason: NAUSEA AND/OR VOMITING Oxycodone HCl (Roxicodone -) 5 mg PO Q6H PRN PRN Reason: PAIN LEVEL 7-10 Last Admin: 02/19/18 11:51 Dose: 5 mg Senna (Senna -) 1 tab PO [facility] Last Admin: 02/19/18 21:12 Dose: 1 tab A/P s/p Fall Right Hip Fracture s/p gamma nail COPD - f/u CXR for possible bony abnormality - screening low dose CT chest noncontrast as outpt - outpt PFTs - incentive spirometry - DVT prophylaxis Problem List - Problems (1) COPD (chronic obstructive pulmonary disease) Code(s): J44.9 - CHRONIC OBSTRUCTIVE PULMONARY DISEASE, UNSPECIFIED Qualifiers: COPD type: unspecified COPD Qualified Code(s): J44.9 - Chronic obstructive pulmonary disease, unspecified (2) Fall Code(s): W19.XXXA - UNSPECIFIED FALL, INITIAL ENCOUNTER Qualifiers: Encounter type: initial encounter Qualified Code(s): W19.XXXA - Unspecified fall, initial encounter (3) Trochanteric fracture Code(s): S72.109A - UNSP TROCHANTERIC FRACTURE OF UNSP FEMUR, INIT FOR CLOS FX Qualifiers: Encounter type: initial encounter Fracture type: closed Laterality: right Qualified Code(s): S72.101A - Unspecified trochanteric fracture of right femur, initial encounter for closed fracture
--- NOTE | 2018-02-20 12:33 | PN ---
Progress Note (short form) - Note Progress Note: Ortho Pt seen and examined s/p right IM gamma nail pod #2 Selected Entries 02/20/18 07:23 Temperature 98.8 F Pulse Rate 81 Respiratory 18 Rate Blood Pressure 106/55 Laboratory Tests 02/18/18 08:10 WBC 6.8 Hgb 10.4 L Hct 30.8 L Plt Count 150 dressing c/d/i, calf soft, nt nvi a/p PT PWB dvt ppx pain control d/c to snf today f/u in 10-14 days
--- NOTE | 2018-02-20 14:05 | PN ---
Progress Note (short form) - Note Progress Note: Pt seen and examined. She is doing well, much less pain, able to move the right hip a little, the knee ankle and foot a lot with minimal pain. RLE is NVI Dressing CDI AVSS H/H stable Imp Doing well s/p right hip fx and Gamma Nail Rec [facility] Light partial weight bearing. Continue SCD's and daily 81 mg ASA F/U as an out pt in 7-14 dayd
[2018-02-20] MEDS: ACETAMINOPHEN 325 MG TABLET (FP) PO PRN (14:17)
[2018-02-20] MEDS: oxyCODONE HCL 5 MG TABLET PO PRN ×2 (14:17→22:23)
--- NOTE | 2018-02-20 14:55 | DS ---
Physical Examination Vital Signs: Vital Signs Temperature 98.7 F 02/20/18 10:00 Pulse Rate 106 H 02/20/18 10:00 Respiratory Rate 20 02/20/18 10:00 Blood Pressure 101/60 02/20/18 10:00 O2 Sat by Pulse Oximetry (%) 96 02/20/18 09:00 Constitutional: Yes: Mild Distress Eyes: Yes: WNL HENT: Yes: WNL, Tonsillar Exudate Cardiovascular: Yes: WNL Respiratory: Yes: WNL Gastrointestinal: Yes: WNL Renal/: Yes: WNL Musculoskeletal: Yes: Muscle Pain Extremities: Yes: Other Edema: No Peripheral Pulses WNL: Yes Integumentary: Yes: WNL Wound/Incision: Yes: Clean/Dry Neurological: Yes: WNL ...Motor Strength: RLE Psychiatric: Yes: WNL Labs: CBC, BMP 02/18/18 08:10 02/18/18 08:10 Discharge Summary Reason For Visit: FRACTURE OF TROCHANTER OF FEMUR Current Active Problems COPD (chronic obstructive pulmonary disease) (Acute) Fall (Acute) Trochanteric fracture (Acute) Procedures: Principal: RIGHT HIP GAMMA NAIL FRACTURE REPAIR Hospital Course: ADMITTED RIGHT HIP FX, TREATED WITH GAMMA NAIL PROCEDURE IN O.R. CAN DC TO SNF, MONITOR LABS Condition: Fair - Instructions Diet, Activity, Other Instructions: REG DIET CHECK IRON AND CBC Referrals: Hamilton Cohen [Primary Care Provider] - Disposition: NURSING HOME FACILITY - Home Medications Comprehensive Discharge Medication List: Ambulatory Orders Calcium Carbonate/Vitamin D3 [Calcium 600-Vit D3 200 Tablet] 1 each PO DAILY Hydrocodone/Acetaminophen [[place] 5-325 Tablet] 1 - 2 each PO Q6H #40 tablet MDD 8 07/27/16 Montelukast Na [Singulair -] 10 mg PO HS 07/27/16 Acetaminophen [Tylenol .Regular Strength -] 325 mg PO Q6H PRN tablet 02/20/18 Aspirin Coated [Ecotrin -] 81 mg PO DAILY tablet.ec 02/20/18 Ferrous Sulfate [Feosol] 325 mg PO DAILY@0800 ud 02/20/18 Heparin - 5,000 unit SQ TID vial 02/20/18 Oxycodone HCl/Acetaminophen [Percocet 5-325 mg Tablet] 1 - 2 combo PO Q6HPO tablet MDD 4 02/20/18 Sennosides [Senna -] 1 tab PO HS tablet 02/20/18
[2018-02-20] MEDS ORDERED: PT OWN MED DRAWER 7, Y5N ONE (21:32)
[2018-02-20] MEDS: SENNOSIDES 8.6MG TABLET (FP) PO SCH (22:25)
[2018-02-21] MEDS: HEPARIN NA (PORCINE) 5,000 UNITS/ML 1ML VIAL SQ SCH (05:46)
[2018-02-21 07:26] VITALS: TEMP 98.2
[2018-02-21] MEDS ORDERED: INSULIN (LEVEMIR) 100 UNITS/ML UNITS SQ ONE (08:07)
[2018-02-21] MEDS ORDERED: MAGNESIUM HYDROX 2400MG/30ML ORAL SUSPENSION 30 ML CUP PO PRN (08:50)
[2018-02-21] MEDS ORDERED: MAGNESIUM HYDROX 2400MG/30ML ORAL SUSPENSION 30 ML CUP PO ONE (08:50)
[2018-02-21] MEDS: FERROUS SO4 325 MG TABLET (FP) PO SCH (09:04)
[2018-02-21] MEDS: ASPIRIN COATED 81 MG TABLET.EC PO SCH (09:04)
[2018-02-21] MEDS ORDERED: ZOLPIDEM TARTRATE 5 MG TABLET PO PRN (09:10)
[2018-02-21 12:09] VITALS: BP 94/64; PULSE 100
== END 2018-02-21 12:06 | DRG 482 ==
LOC: JER 20:32 → JERBED 02-18 01:56 → J8W 02-18 15:20
PROVIDERS: ADMIT Internal Medicine; ATTEND Family Medicine
PROC: 0QS606Z Reposition Right Upper Femur with Intramedullary Internal Fixation Device, Open Approach (ICD-10-PCS; principal; 2018-02-18 13:00)
DX: S72.101A Unspecified trochanteric fracture of right femur, initial encounter for closed fracture (principal); W19.XXXA Unspecified fall, initial encounter; Y93.9 Activity, unspecified; Y92.89 Other specified places as the place of occurrence of the external cause; Y99.9 Unspecified external cause status; J44.9 Chronic obstructive pulmonary disease, unspecified
CPT/HCPCS: 36415; 71045-TC-FY; 73502-TC-RT; 73552-TC-RT-FY; 73562-TC-RT-FY; 76000-TC-FY; 80053; 85025; 85027; 85610; 85730; 86850; 86900; 86901; 93005; 93010; 94760; 97116-GP; 97162-GP; 99285-25; J0131; J1644